=== PATIENT | male | born 1955 | race Hispanic/Latino ===

== ENCOUNTER 2017-10-17 20:13 | Emergency (ER) | payer OTHER ==
[2017-10-17 20:38] VITALS: TEMP 97.7; O2SAT 100
[2017-10-17] MEDS ORDERED: Sodium Chloride 0.9% 1,000 ML IV STA (21:21)
[2017-10-17 21:33] LABS: VENOUS BLOOD GAS BASE EXCESS 3.9 mmol/L (0.0-2.0); VENOUS BLOOD GAS PCO2 38 mmHg (40-60); VENOUS BLOOD GAS PO2 40 mm/Hg (30-55); VENOUS BLOOD PH 7.47 (7.32-7.43)
[2017-10-17 21:41] LABS: BASO % 0.6 % (0.0-2.0); EOS # 0.1 K/uL (0.0-0.7); EOS % 1.9 % (0.0-4.0); HEMOGLOBIN 14.1 g/dL (12.0-18.0); LYMPH # 1.2 K/uL (1.0-4.3); LYMPH % 28.8 % (20.0-40.0); MEAN CELL VOLUME 92.8 fl (80.0-94.0); MEAN CORPUSCULAR HEMOGLOBIN 30.3 pg (27.0-31.0); MEAN CORPUSCULAR HGB CONC 32.7 g/dL (33.0-37.0); MEAN PLATELET VOLUME 8.7 fl (7.2-11.7); MONO # 0.5 K/uL (0.0-0.8); MONO % 12.2 % (0.0-10.0); NEUT # 2.3 K/uL (1.8-7.0); NEUT % 56.5 % (50.0-75.0); NRBC % 0.2 % (0.0-0.0); RBC 4.64 Mil/uL (4.40-5.90); RED CELL DISTRIBUTION WIDTH 13.1 % (11.5-14.5); WHITE BLOOD COUNT 4.1 K/uL (4.8-10.8)
--- NOTE | 2017-10-17 21:43 | ED PDOC ---
HPI: Abdomen Time Seen by Provider: 10/17/17 20:41 Chief Complaint (Nursing): Abdominal Pain Chief Complaint (Provider): Midline Abdominal Pain History Per: Patient History/Exam Limitations: no limitations Onset/Duration Of Symptoms: Days (3 days ago) Current Symptoms Are (Timing): Still Present Additional Complaint(s): 62 y/o male with a history of right sided inguinal hernia surgery, presents to the ED complaining of a cramping midline abdominal pain with associated nausea, onset of 3 days ago. Roughly 2 days ago, the patient also reports that he has had large bowel movements throughout the day, but denies any diarrhea or vomiting, fever, chills, or bloody stool. Past Medical History Reviewed: Historical Data, Nursing Documentation, Vital Signs Vital Signs: Last Vital Signs Temp 97.7 F 10/17/17 20:32 Pulse 48 L 10/17/17 23:12 Resp 16 10/17/17 23:12 BP 117/71 10/17/17 23:12 Pulse Ox 100 10/17/17 21:57 - Medical History PMH: No Chronic Diseases - Surgical History Other surgeries: Right-Sided Inguinal Hernia Surgery - Family History Family History: States: Unknown Family Hx - Social History Current smoker - smoking cessation education provided: No Ex-Smoker (has not smoked in the last 12 months): No Alcohol: Social Drugs: Denies - Home Medications Home Medications: Ambulatory Orders Medication Instructions Recorded Dicyclomine [Bentyl] 20 mg PO BID #30 tab 10/17/17 - Allergies Allergies/Adverse Reactions: Allergies Allergy/AdvReac Type Severity Reaction Status Date / Time No Known Allergies Allergy Verified 10/17/17 20:35 Review of Systems ROS Statement: Except As Marked, All Systems Reviewed And Found Negative Constitutional: Negative for: Fever, Chills Gastrointestinal: Positive for: Abdominal Pain (cramping midline abdominal pain) . Negative for: Hematochezia Physical Exam - Reviewed Nursing Documentation Reviewed: Yes Vital Signs Reviewed: Yes - Physical Exam Appears: Positive for: Non-toxic, No Acute Distress Head Exam: Positive for: ATRAUMATIC Skin: Positive for: Normal Color, Warm Eye Exam: Positive for: Normal appearance, EOMI, PERRL ENT: Positive for: Normal ENT Inspection Neck: Positive for: Normal, Painless ROM, Supple Cardiovascular/Chest: Positive for: Regular Rate, Rhythm. Negative for: Murmur Respiratory: Positive for: Normal Breath Sounds. Negative for: Respiratory Distress Gastrointestinal/Abdominal: Positive for: Normal Exam, Soft. Negative for: Tenderness Back: Positive for: Normal Inspection Neurologic/Psych: Positive for: Alert, Oriented. Negative for: Motor/Sensory Deficits - Laboratory Results Result Diagrams: 10/17/17 21:32 10/17/17 21:32 - ECG O2 Sat by Pulse Oximetry: 100 (RA) Pulse Ox Interpretation: Normal Medical Decision Making Medical Decision Making: Time: --21:21 Impression: --Mild Gastroenteritis vs. Colon spasm vs. Irritable Bowel Plan: --Labs --Bentyl 20mg PO --Toradol 30mg IVP --IV Fluids Reassess --21:21 Patient requesting to not perform a CT scan at this time. --23:00 Pt. is reporting improvement in symptoms. Labs negative. Told patient to f/u w / PMD tomorrow, or if pain worsens or other concerning symptoms develop can return to ER for further eval. Scribe Attestation: Documented by Lazaro Sandoval acting as a scribe for Kevin Jaime MD. Disposition - Clinical Impression Clinical Impression: Abdominal cramps - Disposition Disposition: Routine/Home Disposition Time: 23:00 Condition: IMPROVED Additional Instructions: Please followup with your doctor tomorrow. Prescriptions: Dicyclomine [Bentyl] 20 mg PO BID #30 tab Instructions: Acute Abdominal Pain (DC), Gas and Bloating (ED) Forms: [employer] (Guyanese)
[2017-10-17 21:55] LABS: ALB/GLOB RATIO 1.4 (1.0-2.1); CALCIUM 8.7 mg/dL (8.4-10.2); GFR AFRICAN-AMERICAN > 60; GFR NON-AFRICAN AMERICAN > 60
[2017-10-17 22:12] LABS: ALT/SGPT 34 U/L (21-72); AST/SGOT 36 U/L (17-59); BLOOD UREA NITROGEN 12 mg/dl (9-20)
[2017-10-17 23:14] VITALS: BP 117/71; PULSE 48; RESP 16
== END 2017-10-17 23:14 | disposition home or self-care (01) ==
LOC: H.ER 20:13
DX: R10.9 Unspecified abdominal pain (principal); R11.0 Nausea
CPT/HCPCS: 80053; 82803; 85025; 96361; 96374; 99283; J1885; J7040